=== PATIENT | female | born 1935 | race Caucasian/White ===

== ENCOUNTER 2016-09-26 14:49 | Emergency (ER) | payer MEDICARE, MEDICAID ==
[2016-09-26 15:02] VITALS: PULSE 76; RESP 18; TEMP 97.6; O2SAT 98
[2016-09-26 16:10] LABS: BASO # 0.1 K/uL (0.0-0.2); BASO % 0.8 % (0.0-2.0); EOS # 0.2 K/uL (0.0-0.7); EOS % 2.5 % (0.0-4.0); HEMATOCRIT 37.5 % (34.0-47.0); LYMPH # 2.7 K/uL (1.0-4.3); LYMPH % 27.1 % (20.0-40.0); MEAN CORPUSCULAR HGB CONC 34.4 g/dL (33.0-37.0); MEAN PLATELET VOLUME 10.2 fl (7.2-11.7); MONO # 1.4 K/uL (0.0-0.8); MONO % 13.8 % (0.0-10.0); NEUT # 5.5 K/uL (1.8-7.0); NEUT % 55.8 % (50.0-75.0); NRBC % 0.3 % (0.0-0.0); RED CELL DISTRIBUTION WIDTH 13.9 % (11.5-14.5); WHITE BLOOD COUNT 9.8 K/uL (4.8-10.8)
[2016-09-26 16:12] LABS: ALB/GLOB RATIO 1.5 (1.0-2.1); ALKALINE PHOSPHATASE 51 U/L (38-126); ALT/SGPT 32 U/L (9-52); AST/SGOT 58 U/L (14-36); BILIRUBIN,TOTAL 1.4 mg/dl (0.2-1.3); BLOOD UREA NITROGEN 10 mg/dl (7-17); CARBON DIOXIDE 25 mmol/L (22-30); CHLORIDE 99 mmol/L (98-107); GFR AFRICAN-AMERICAN > 60; GLUCOSE,RANDOM 146 mg/dL (65-105); MAGNESIUM 1.9 MG/DL (1.6-2.3); PHOSPHOROUS 2.9 mg/dl (2.5-4.5); POTASSIUM 4.6 MMOL/L (3.6-5.0); SODIUM 133 mmol/l (132-148); TOTAL PROTEIN 7.4 G/DL (6.3-8.2)
[2016-09-26 16:22] LABS: PARTIAL THROMBOPLASTIN TIME 21.6 SECONDS (23.3-32.5)
[2016-09-26 16:31] LABS: RBC URINE 21 /hpf (0-3); URINE BACTERIA MANY (<OCC); URINE BILIRUBIN NEGATIVE (NEGATIVE); URINE BLOOD LARGE (NEGATIVE); URINE COLOR YELLOW (YELLOW); URINE GLUCOSE (UA) NEG (Normal); URINE KETONE NEGATIVE (NEGATIVE); URINE LEUKOCYTE ESTERASE LARGE Leu/uL (Negative); URINE PROTEIN 100 mg/dL (NEGATIVE); URINE UROBILINOGEN 0.2-1.0 mg/dL (0.2-1.0); WBC CLUMPS MANY /hpf; WBC URINE 980 /hpf (0-5)
--- NOTE | 2016-09-26 16:50 | ED PDOC ---
HPI: Female Pain Time Seen by Provider: 09/26/16 15:10 Chief Complaint (Nursing): Female Genitourinary Chief Complaint (Provider): Female Genitourinary History Per: Patient History/Exam Limitations: no limitations Onset/Duration Of Symptoms: Days (x3) Current Symptoms Are (Timing): Still Present Associated Symptoms: Constipation (Chronic). denies: Fever, Chills, Nausea, Vomiting, Diarrhea Additional History Per: Patient Additional Complaint(s): Nathan Adair is a 80 year old female with a past medical history of HTN, and hypercholesterolemia who presents to the ED with a chief complaint of urinating pain onset x2 days [place]. Associated symptoms include lower abdominal discomfort, and frequent urination, but denies any hematuria, fever, chills, back pain, nausea, vomiting, or diarrhea. Patient also admits to having constipation chronically In addn, leg edema 1 week, no pain, no sob, no cp. Compliant with htn meds. Past Medical History Reviewed: Historical Data, Nursing Documentation, Vital Signs Vital Signs: Last Vital Signs Temp 97.6 F 09/26/16 14:59 Pulse 76 09/26/16 14:59 Resp 18 09/26/16 14:59 BP 169/78 H 09/26/16 14:59 Pulse Ox 98 09/26/16 14:59 - Medical History PMH: HTN, Hypercholesterolemia - Surgical History Surgical History: No Surg Hx - Family History Family History: States: Unknown Family Hx - Social History Current smoker - smoking cessation education provided: No Ex-Smoker (has not smoked in the last 12 months): No - Immunization History Hx Influenza Vaccination: Yes Hx Pneumococcal Vaccination: No - Home Medications Home Medications: Ambulatory Orders Medication Instructions Recorded Hydrochlorothiazide/Valsarta 1 tab PO DAILY 05/22/15 [Diovan Hct 12.5 mg-160 mg] Ibuprofen [Motrin Tab] 800 mg PO Q8H 05/22/15 Simvastatin 20 mg PO HS 05/22/15 oxyCODONE/Acetaminophen [Percocet 1 tab PO Q6H PRN #5 tab 05/22/15 5/325 mg Tab] Acyclovir 800 mg PO Q8 #21 tablet 12/07/15 Acyclovir 5% [Zovirax 5% Oint] 1 applic EXT 5XD #1 tube 12/07/15 Tramadol HCl [Ultram] 50 mg PO BID PRN #30 tablet 12/07/15 Ibuprofen [Motrin Tab] 600 mg PO Q6 #30 tab 01/19/16 Tamsulosin [Flomax] 0.4 mg PO DAILY #20 cap 01/19/16 levoFLOXacin [Levaquin] 750 mg PO DAILY 9 Days 01/19/16 traMADol [Ultram] 50 mg PO Q6 PRN #20 tab 01/19/16 Non-Formulary 1 ea .ROUTE DAILY #3 ea 09/26/16 levoFLOXacin [Levaquin] 750 mg PO DAILY #6 tab 09/26/16 - Allergies Allergies/Adverse Reactions: Allergies Allergy/AdvReac Type Severity Reaction Status Date / Time No Known Allergies Allergy Verified 09/26/16 14:58 Review of Systems ROS Statement: Except As Marked, All Systems Reviewed And Found Negative Constitutional: Negative for: Fever, Chills Gastrointestinal: Positive for: Constipation (Chronic), Other (Lower abdominal discomfort). Negative for: Nausea, Vomiting, Diarrhea Genitourinary Female: Positive for: Frequency. Negative for: Hematuria Musculoskeletal: Positive for: Other (Bilateral pedal edema). Negative for: Back Pain Physical Exam - Reviewed Nursing Documentation Reviewed: Yes Vital Signs Reviewed: Yes - Physical Exam Appears: Positive for: Well, Non-toxic, No Acute Distress Head Exam: Positive for: ATRAUMATIC, NORMAL INSPECTION, NORMOCEPHALIC Skin: Positive for: Normal Color, Warm, Dry Eye Exam: Positive for: Normal appearance, EOMI, PERRL ENT: Positive for: Normal ENT Inspection Neck: Positive for: Normal Cardiovascular/Chest: Positive for: Regular Rate, Rhythm. Negative for: Murmur , Tachycardia Respiratory: Positive for: Normal Breath Sounds. Negative for: Wheezing, Respiratory Distress Gastrointestinal/Abdominal: Positive for: Normal Exam, Soft. Negative for: Tenderness Back: Positive for: Normal Inspection. Negative for: L CVA Tenderness, R CVA Tenderness Extremity: Positive for: Pedal Edema (Bilateral) Lymphatic: Positive for: Deferred Neurologic/Psych: Positive for: Alert, Oriented - Laboratory Results Result Diagrams: 09/26/16 15:50 09/26/16 15:50 - ECG O2 Sat by Pulse Oximetry: 98 (RA) Pulse Ox Interpretation: Normal Medical Decision Making Medical Decision Makin: Initial Impression: UTI and Pedal Edema Initial Plan: * Partial Thromboplastin Time * B-Type Natriuretic Peptide * CMP * Magnesium * Phosphorous * Troponin I * ED U-Dip * CBC * Partial Thromboplastin Time * Prothrombin Time * Urine culture * IV insertion * Urinalysis * Re-Eval Used a video powdered metal supervisor # [id number] Labs demonstrate UTI, otherwise no clinically significant lab abnormalities DW pt via video translater Cristal Enriquez pcp next week. Scribe Attestation: Documented by Amanda Sequeira acting as a scribe for Berta Joy MD. Provider Scribe Attestation: All medical record entries made by the Scribe were at my direction and personally dictated by me. I have reviewed the chart and agree that the record accurately reflects my personal performance of the history, physical exam, medical decision making, and the department course for this patient. I have also personally directed, reviewed, and agree with the discharge instructions and disposition. Disposition - Clinical Impression Clinical Impression: Urinary tract infection, Leg edema - Disposition Referrals: [facility] [Outside] [facility] [Outside] - 09/28/16 Disposition: Routine/Home Disposition Time: 18:15 Condition: GOOD Prescriptions: levoFLOXacin [Levaquin] 750 mg PO DAILY #6 tab Non-Formulary 1 ea .ROUTE DAILY #3 ea Instructions: Urinary Tract Infection in Women (ED), Leg Edema (ED)
[2016-09-26] MEDS ORDERED: levoFLOXacin 750 MG TAB PO STA (17:44)
[2016-09-26 17:48] VITALS: BP 158/69
== END 2016-09-26 18:25 | disposition home or self-care (01) ==
LOC: H.ER 14:49
DX: N39.0 Urinary tract infection, site not specified (principal); R60.0 Localized edema; E78.00 Pure hypercholesterolemia, unspecified; I10 Essential (primary) hypertension; Z87.891 Personal history of nicotine dependence

== ENCOUNTER 2017-06-12 14:02 | Emergency (ER) | payer MEDICARE, MEDICAID ==
[2017-06-12 14:24] VITALS: BP 143/68; PULSE 69; RESP 20; TEMP 97.8; O2SAT 95
--- NOTE | 2017-06-12 15:13 | ED PDOC ---
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 Patient was evaluated with urologist about 3 months go with an ultrasound and cystoscopy. Patient was told she had no cancer but did have a urinary tract infection. Patient was prescribed antibiotics without relief and comes here today due to dysuria and frequency constantly everyday for 6 months. Denies fever, abdominal pain, flank pain, incontinence, hematuria, N/V/D. Past Medical History Reviewed: Historical Data, Nursing Documentation, Vital Signs Vital Signs: Last Vital Signs Temp 97.8 F 06/12/17 14:13 Pulse 69 06/12/17 14:13 Resp 20 06/12/17 14:13 BP 143/68 06/12/17 14:13 Pulse Ox 95 06/12/17 22:45 - Medical History PMH: HTN, Hypercholesterolemia - Family History Family History: States: No Known Family Hx - Immunization History Hx Influenza Vaccination: Yes Hx Pneumococcal Vaccination: No - Home Medications Home Medications: Ambulatory Orders Medication Instructions Recorded Hydrochlorothiazide/Valsarta 1 tab PO DAILY 05/22/15 [Diovan Hct 12.5 mg-160 mg] Ibuprofen [Motrin Tab] 800 mg PO Q8H 05/22/15 Simvastatin 20 mg PO HS 05/22/15 oxyCODONE/Acetaminophen [Percocet 1 tab PO Q6H PRN #5 tab 05/22/15 5/325 mg Tab] Acyclovir 800 mg PO Q8 #21 tablet 12/07/15 Acyclovir 5% [Zovirax 5% Oint] 1 applic EXT 5XD #1 tube 12/07/15 Tramadol HCl [Ultram] 50 mg PO BID PRN #30 tablet 12/07/15 Ibuprofen [Motrin Tab] 600 mg PO Q6 #30 tab 01/19/16 Tamsulosin [Flomax] 0.4 mg PO DAILY #20 cap 01/19/16 levoFLOXacin [Levaquin] 750 mg PO DAILY 9 Days tab 01/19/16 traMADol [Ultram] 50 mg PO Q6 PRN #20 tab 01/19/16 Non-Formulary 1 ea .ROUTE DAILY #3 ea 09/26/16 levoFLOXacin [Levaquin] 750 mg PO DAILY #6 tab 09/26/16 Nitrofurantoin Macrocrystals 100 mg PO BID #14 cap 06/12/17 [Macrobid] Phenazopyridine [Pyridium] 100 mg PO BID #6 tab 06/12/17 - Allergies Allergies/Adverse Reactions: Allergies Allergy/AdvReac Type Severity Reaction Status Date / Time No Known Allergies Allergy Verified 09/26/16 14:58 Review of Systems ROS Statement: Except As Marked, All Systems Reviewed And Found Negative Genitourinary Female: Positive for: Dysuria, Frequency Physical Exam - Reviewed Nursing Documentation Reviewed: Yes Vital Signs Reviewed: Yes - Physical Exam Appears: Positive for: Well, No Acute Distress Head Exam: Positive for: NORMAL INSPECTION Skin: Positive for: Normal Color, Warm, Dry Gastrointestinal/Abdominal: Positive for: Normal Exam, Soft. Negative for: Tenderness Back: Positive for: Normal Inspection. Negative for: L CVA Tenderness, R CVA Tenderness Neurologic/Psych: Positive for: Alert, Oriented (x3) - Laboratory Results Urine dip results: Positive for: Leukocyte Esterase (moderate), Blood (trace). Negative for: Nitrate, Ketones, Glucose, Bilirubin, Protein - ECG O2 Sat by Pulse Oximetry: 95 (RA) Pulse Ox Interpretation: Normal Medical Decision Making Medical Decision Making: Time: 1426 Initial impression: Urinary Tract Infection (UTI) Initial plan: --Urine DIP --Urine Culture --Reevaluation Time: 1453 --Patient is medically stable for discharge and given Rx for Macrobid 100 mg and Pyridium 100 mg. Patient advised to follow up with Dr. Carlitos Clement MD. Clinical Impression: Urinary Tract Infection (UTI) Scribe Attestation: Documented by Latha Solano, acting as a scribe for Kelvin Cano PA-C Provider Scribe Attestation: All medical record entries made by the Scribe were at my direction and personally dictated by me. I have reviewed the chart and agree that the record accurately reflects my personal performance of the history, physical exam, medical decision making, and the department course for this patient. I have also personally directed, reviewed, and agree with the discharge instructions and disposition. Disposition - Clinical Impression Clinical Impression: Urinary tract infection - Patient ED Disposition Is Patient to be Admitted: No - Disposition Referrals: Carlitos Clement MD [Medical Doctor] - Disposition: Routine/Home Disposition Time: 14:53 Condition: STABLE Prescriptions: Nitrofurantoin Macrocrystals [Macrobid] 100 mg PO BID #14 cap Phenazopyridine [Pyridium] 100 mg PO BID #6 tab Instructions: Urinary Tract Infection in Women (ED) Forms: [facility] (Yi) Print Language: FRENCH
== END 2017-06-12 17:15 | disposition home or self-care (01) ==
LOC: H.ER 14:02
DX: N39.0 Urinary tract infection, site not specified (principal); E78.00 Pure hypercholesterolemia, unspecified; I10 Essential (primary) hypertension

== ENCOUNTER 2017-06-13 12:32 | Emergency (ER) | payer MEDICARE, MEDICAID ==
[2017-06-13 12:55] VITALS: BP 154/48; PULSE 67; RESP 18; TEMP 97.6; O2SAT 98
--- NOTE | 2017-06-13 13:47 | ED PDOC ---
HPI: Female Pain Time Seen by Provider: 06/13/17 13:14 Chief Complaint (Nursing): Female Genitourinary Chief Complaint (Provider): Dysuria History Per: Patient History/Exam Limitations: no limitations Onset/Duration Of Symptoms: Days (1 week) Current Symptoms Are (Timing): Still Present Additional Complaint(s): Pt. with dysuria and freq urination. 1 week. Seen yesterday for it in ER. Given macrobid and pyridium. Here as she noted orange urine. Started the meds yesterday. Denies any abd pain, vaginal dc or bleeding. No back pain, weakness , chest pain, dyspnea, fever. Past Medical History Reviewed: Nursing Documentation, Vital Signs Vital Signs: Last Vital Signs Temp 97.6 F 06/13/17 12:53 Pulse 67 06/13/17 12:53 Resp 18 06/13/17 12:53 BP 154/48 H 06/13/17 12:53 Pulse Ox 98 06/13/17 12:53 - Medical History PMH: HTN, Hypercholesterolemia - Family History Family History: States: Unknown Family Hx - Social History Alcohol: None Drugs: Denies - Immunization History Hx Influenza Vaccination: Yes Hx Pneumococcal Vaccination: No - Home Medications Home Medications: Ambulatory Orders Medication Instructions Recorded Hydrochlorothiazide/Valsarta 1 tab PO DAILY 05/22/15 [Diovan Hct 12.5 mg-160 mg] Ibuprofen [Motrin Tab] 800 mg PO Q8H 05/22/15 Simvastatin 20 mg PO HS 05/22/15 oxyCODONE/Acetaminophen [Percocet 1 tab PO Q6H PRN #5 tab 05/22/15 5/325 mg Tab] Acyclovir 800 mg PO Q8 #21 tablet 12/07/15 Acyclovir 5% [Zovirax 5% Oint] 1 applic EXT 5XD #1 tube 12/07/15 Tramadol HCl [Ultram] 50 mg PO BID PRN #30 tablet 12/07/15 Ibuprofen [Motrin Tab] 600 mg PO Q6 #30 tab 01/19/16 Tamsulosin [Flomax] 0.4 mg PO DAILY #20 cap 01/19/16 levoFLOXacin [Levaquin] 750 mg PO DAILY 9 Days tab 01/19/16 traMADol [Ultram] 50 mg PO Q6 PRN #20 tab 01/19/16 Non-Formulary 1 ea .ROUTE DAILY #3 ea 09/26/16 levoFLOXacin [Levaquin] 750 mg PO DAILY #6 tab 09/26/16 Nitrofurantoin Macrocrystals 100 mg PO BID #14 cap 06/12/17 [Macrobid] Phenazopyridine [Pyridium] 100 mg PO BID #6 tab 06/12/17 - Allergies Allergies/Adverse Reactions: Allergies Allergy/AdvReac Type Severity Reaction Status Date / Time No Known Allergies Allergy Verified 06/13/17 13:21 Review of Systems Constitutional: Negative for: Fever, Weakness Cardiovascular: Negative for: Chest Pain, Edema, Light Headedness Respiratory: Negative for: Cough, Shortness of Breath Gastrointestinal: Negative for: Nausea, Vomiting, Abdominal Pain Genitourinary Female: Positive for: Dysuria, Frequency. Negative for: Hematuria Musculoskeletal: Negative for: Neck Pain, Shoulder Pain Skin: Negative for: Rash Neurological: Negative for: Weakness Physical Exam - Reviewed Nursing Documentation Reviewed: Yes Vital Signs Reviewed: Yes - Physical Exam Appears: Positive for: Non-toxic, No Acute Distress Head Exam: Positive for: ATRAUMATIC, NORMAL INSPECTION, NORMOCEPHALIC Neck: Positive for: Normal, Painless ROM Cardiovascular/Chest: Positive for: Regular Rate, Rhythm Respiratory: Positive for: CNT, Normal Breath Sounds Gastrointestinal/Abdominal: Positive for: Normal Exam, Bowel Sounds, Soft. Negative for: Tenderness Back: Positive for: Normal Inspection. Negative for: L CVA Tenderness, R CVA Tenderness Neurologic/Psych: Positive for: Alert, Oriented - ECG O2 Sat by Pulse Oximetry: 98 - Progress ED Course And Treament: 1348: Pt. advised that urine will turn orange with pyridium. Aware to continue antibiotics. Fu with clinic. Cx results pending final read. AAOx3. Pain controlled. Disposition - Clinical Impression Clinical Impression: Urinary tract infection - Patient ED Disposition Is Patient to be Admitted: No Counseled Patient/Family Regarding: Diagnosis, Need For Followup - Disposition Referrals: [facility] [Outside] - 06/14/17 Disposition: Routine/Home Disposition Time: 13:49 Condition: STABLE Additional Instructions: Return if not better in 3 days. Instructions: Urinary Tract Infection in Women (ED)
== END 2017-06-13 14:03 | disposition home or self-care (01) ==
LOC: H.ER 12:32
DX: N39.0 Urinary tract infection, site not specified (principal); I10 Essential (primary) hypertension; E78.00 Pure hypercholesterolemia, unspecified

== ENCOUNTER 2017-06-18 08:34 | Day surgery (SDC) | payer MEDICARE, MEDICAID ==
[2017-06-18] MEDS ORDERED: MethylPREDNISolone Depo 40 mg/ml Inj ONE (09:22)
[2017-06-18] MEDS ORDERED: Bupivacaine HCl 0.25% PF (10 ml) Inj ONE (09:23)
[2017-06-18] MEDS ORDERED: Lidocaine 1% Inj (20ml) ONE (09:23)
[2017-06-18] MEDS ORDERED: Iohexol 300 10 ML ONE (09:23)
[2017-06-18 09:45] VITALS: RESP 18
[2017-06-18] MEDS ORDERED: Lactated Ringer's 1,000 ML IV ONE (10:55)
[2017-06-18] MEDS ORDERED: Midazolam 2 MG/2 ML VIAL ONE (10:56)
[2017-06-18] MEDS ORDERED: Bupivacaine HCl 0.25% PF (10 ml) Inj IJ ONE (11:00)
[2017-06-18] MEDS ORDERED: Iohexol 300 10 ML IJ ONE (11:00)
[2017-06-18] MEDS ORDERED: methylPREDNISolone Depo 80 mg/ml Inj IM ONE (11:00)
[2017-06-18] MEDS ORDERED: Lidocaine 1% Inj (20ml) IJ ONE (11:00)
[2017-06-18] MEDS ORDERED: Lactated Ringer's 1,000 ML IV SCH (11:30)
[2017-06-18 13:10] VITALS: BP 144/52; PULSE 65; TEMP 97.3; O2SAT 97
--- NOTE | 2017-06-18 14:11 | RAD ---
PROCEDURE: Fluoroscopy up to 1 hr. HISTORY: PAIN MANAGEMENT COMPARISON: None TECHNIQUE: Standard protocol for this study/examination. FINDINGS: Total fluoroscopic time (continuous mode) utilized during the procedure: 45.2 seconds. Total exam DLP: (mGy): 16.61. IMPRESSION: Submitted images from the current procedure: 3.0.
--- NOTE | 2017-06-21 07:15 | OP ---
PROCEDURE DATE: 06/18/2017 PREOPERATIVE DIAGNOSES: Thoracic spondylosis and lumbar radiculopathy. POSTOPERATIVE DIAGNOSES: Thoracic spondylosis and lumbar radiculopathy. PROCEDURE: Right T4, T5, and T6 medial branch nerve block and right L4-5, L5-S1 transforaminal epidural steroid injection. SURGEON: Amy Dumont MD TYPE OF ANESTHESIA: Monitored anesthesia care. ANESTHESIA ADMINISTERED BY: Dr. Paez COMPLICATIONS: None. SPECIMEN: None. DESCRIPTION OF PROCEDURE: As follows; After discussion of the procedure with the patient including its risks, benefits, alternative, outcome data, possibility of no effect or increased pain, patient consented to the procedure. She denies any recent infections, bleeding tendencies or being on anticoagulants; the decision was then made to proceed to the OR. The patient was placed on the fluoroscopy table in a prone position with 2 pillows underneath her abdomen. The back was prepped and draped in the usual sterile fashion and sterile technique was adhered during the entire procedure. The L4 and L5 vertebral levels were first identified in the anterior and posterior view. Angulation towards the right at approximately 25 degrees was used to maximize the visualization of the right L4 and L5 pedicles. The skin overlying the 6 o'clock position of the pedicles was infiltrated with 1% lidocaine using a 25-gauge needle. Subsequently, a 22-gauge 3.5 inch spinal needle was incrementally advanced under fluoroscopic guidance until tip of the needle walk into the intervertebral foramen. After satisfactory positioning of both needles, approximately 0.5 mL of Isovue contrast was injected to show appropriate epidural nerve root spread without any signs of CSF or intravenous involvements. At this point, approximately 3 mL of 0.25% Marcaine and Depo-Medrol mixture was injected. The needle was then removed and the patient's back was cleaned and dry bandages were applied. Then the thoracic medial branch nerves were performed. The T4, T5, and T6 vertebral levels were first identified in the anteroposterior view. The medial branch nerves on the right is located at the right pedicle of the corresponding levels. The skin overlying the three above target areas were then infiltrated with 1% lidocaine using 25-gauge needle. Subsequently, a 22-gauge 3.5 inch spinal needle was then incrementally advanced under fluoroscopic guidance until the tip of needle made bony contact with all target areas. After satisfactory positioning of all 3 needles approximately 2 mL of 0.25% Marcaine and Depo-Medrol mixture was injected. The needle was then removed and the patient's chest was then cleaned and dried, and bandages were applied. 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 She will follow up in our office in approximately two to four weeks. En-Denys Dumont MD
== END 2017-06-18 13:40 | disposition home or self-care (01) ==
LOC: H.OPSURG 08:34
PROVIDERS: ATTEND Anesthesiology
DX: M54.16 Radiculopathy, lumbar region (principal); M47.894 Other spondylosis, thoracic region; I10 Essential (primary) hypertension
CPT/HCPCS: 64479; 64480; 64483; 64484; J1030; J1040; J2250; J3010; J7120; Q9967

== ENCOUNTER 2017-07-23 07:33 | Day surgery (SDC) | payer MEDICARE, MEDICAID ==
[2017-07-23 08:35] VITALS: BMI 27.2
[2017-07-23] MEDS ORDERED: MethylPREDNISolone Depo 40 mg/ml Inj ONE (09:13)
[2017-07-23] MEDS ORDERED: methylPREDNISolone Depo 80 mg/ml Inj ONE (09:13)
[2017-07-23] MEDS ORDERED: Iohexol 300 10 ML ONE (09:14)
[2017-07-23] MEDS ORDERED: Bupivacaine HCl 0.25% PF (10 ml) Inj ONE (09:14)
[2017-07-23] MEDS ORDERED: Lidocaine 1% Inj (20ml) ONE (09:14)
[2017-07-23] MEDS ORDERED: Bupivacaine HCl 0.5% PF (10 ml) Inj ONE (09:14)
[2017-07-23] MEDS ORDERED: Midazolam 2 MG/2 ML VIAL ONE (09:21)
[2017-07-23] MEDS ORDERED: Lactated Ringer's 500 ML IV ONE (09:40)
[2017-07-23] MEDS ORDERED: Lactated Ringer's 1,000 ML IV SCH (10:00)
--- NOTE | 2017-07-23 11:54 | OP ---
PROCEDURE DATE: 07/23/2017 PREOPERATIVE DIAGNOSES: Lumbar radiculopathy and right sacroiliac joint dysfunction and right greater trochanteric bursitis. POSTOPERATIVE DIAGNOSES: Lumbar radiculopathy and right sacroiliac joint dysfunction and right greater trochanteric bursitis. PROCEDURE: L5-S1 interlaminar epidural steroid injection and right sacroiliac joint steroid injection and right greater trochanteric injection. ANESTHESIOLOGIST: Tejinder Lawler MD SURGEON: Amy Dumont MD TYPE OF ANESTHESIA: Monitored anesthesia care. COMPLICATIONS: None. SPECIMEN: None. DESCRIPTION OF PROCEDURE: As follows. After, we had discussion of the procedure with the patient including its risks, benefits, alternative, outcome data, possibility of no effect or increased pain, the patient consented to the procedure. She denies any recent infection, bleeding tendencies, or being on anticoagulants, a decision was then made to proceed to the OR. The patient was placed on the fluoroscopy table in a prone position with 2 pillows underneath her abdomen. The back was prepped and draped in the usual sterile fashion and sterile technique was adhered during the entire procedure. The L5-S1 interlaminar space was first identified in the anterior and posterior view. The skin overlying this area was then infiltrated with 1% lidocaine using a 25-gauge needle. Subsequently, a 20-gauge 3.5-inch Tuohy needle was then incrementally advanced under fluoroscopic guidance until loss of resistance was reached at approximately 6 cm depth. This was confirmed by injecting approximately 1 mL of Isovue contrast, which showed appropriate epidural spread both the anterior, posterior view and lateral views without any signs of CSF or intravenous involvement. At this point, approximately 5 mL of normal saline and Depo-Medrol mixture was gradually injected. The needle was then removed. joints was visualized on the anterior and posterior view. The skin overlying the inferior pole of the posterior opening of the joint was then infiltrated with 1% lidocaine using 25-gauge needle. Subsequently, a 22-gauge 3.5-inch spinal needle was then incrementally advanced under fluoroscopic guidance until the tip of the needle worked into the joint capsule. This was confirmed by injecting approximately 0.5 mL Isovue contrast. After appropriate placement of the needle, approximately 3 mL of 0.5% Marcaine and Depo-Medrol mixture was injected. The needle was then removed. Then the right greater trochanter was palpated. The skin overlying this area was infiltrated with 1% lidocaine using 25-gauge needle. Then, a 22-gauge 3.5-inch spinal needle was then incrementally advanced under fluoroscopic guidance until tip of needle made bony contact. This was confirmed the anterior, posterior view fluoroscopy. The tip of the needle was placed at the greater trochanteric bursa. Contrast was injected to rule out inadvertant placement of the needle. Then, approximately 5 mL of 0.5% Marcaine and Depo-Medrol mixture was injected. The needle was then removed and the patient's back was cleaned and dried and bandages were applied. The patient was then transferred to recovery area in good condition without any signs of GRIEF COUNSELLOR toxicity or any neurological deficits. She will have a follow in office in approximately 2 to 4 weeks. En-Denys Dumont MD
[2017-07-23 12:37] VITALS: BP 148/57; PULSE 76; RESP 18; TEMP 97.5; O2SAT 96
--- NOTE | 2017-07-23 13:30 | RAD ---
PROCEDURE: Intraoperative fluoroscopy CT HISTORY: PAIN MANAGEMENT COMPARISON: Not available TECHNIQUE: Intraoperative fluoroscopy was provided for multifocal fluoroscopically guided pain management injections. Total time of fluoroscopy was 31.0 seconds. FINDINGS: Multiple fluoroscopic spot films are submitted. IMPRESSION: Fluoroscopy provided.
== END 2017-07-23 12:30 | disposition home or self-care (01) ==
LOC: H.OPSURG 07:33
PROVIDERS: ATTEND Anesthesiology
DX: M54.16 Radiculopathy, lumbar region (principal); I10 Essential (primary) hypertension; M70.61 Trochanteric bursitis, right hip; E78.5 Hyperlipidemia, unspecified
CPT/HCPCS: 20610; 62323; J1030; J1040; J2250; J3010; J7120; Q9967

== ENCOUNTER 2017-09-23 07:37 | Day surgery (SDC) | payer MEDICARE, MEDICAID | END 2017-09-23 09:30 | disposition home or self-care (01) | LOC: H.ENDO 07:37 | PROVIDERS: ATTEND Internal Medicine Gastroenterology | DX: Z02.89 Encounter for other administrative examinations (principal) ==

== ENCOUNTER 2017-10-22 13:43 | Emergency (ER) | payer MEDICARE, MEDICAID ==
[2017-10-22 13:44] VITALS: BMI 27.2
--- NOTE | 2017-10-22 14:20 | ED PDOC ---
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 states for the past 4-5 days she's had dysuria, frequency, and urgency. She was initially treated with Detrol by a "specialist" without any relief. Denies back pain, fever, hematuria, abdominal pain, N/V/D. Past Medical History Reviewed: Historical Data, Nursing Documentation, Vital Signs Vital Signs: Last Vital Signs Temp 98.4 F 10/22/17 13:51 Pulse 73 10/22/17 13:51 Resp 18 10/22/17 13:51 BP 188/75 H 10/22/17 13:51 Pulse Ox 97 10/22/17 13:51 - Medical History PMH: HTN, Hypercholesterolemia - Family History Family History: States: No Known Family Hx - Immunization History Hx Influenza Vaccination: Yes Hx Pneumococcal Vaccination: No - Home Medications Home Medications: Ambulatory Orders Medication Instructions Recorded Atorvastatin [Lipitor] 20 mg PO DAILY 06/18/17 Gabapentin [Neurontin] 100 mg PO DAILY 06/18/17 Valsartan [Diovan] 160 mg PO DAILY 06/18/17 Ciprofloxacin [Cipro] 500 mg PO BID #14 tab 10/22/17 Phenazopyridine HCl [Pyridium] 100 mg PO BID #6 tablet 10/22/17 - Allergies Allergies/Adverse Reactions: Allergies Allergy/AdvReac Type Severity Reaction Status Date / Time No Known Allergies Allergy Verified 06/13/17 13:21 Review of Systems ROS Statement: Except As Marked, All Systems Reviewed And Found Negative Genitourinary Female: Positive for: Dysuria, Frequency Physical Exam - Physical Exam Appears: Positive for: Well, Non-toxic, No Acute Distress Skin: Positive for: Normal Color, Warm. Negative for: Rash Eye Exam: Positive for: Normal appearance Gastrointestinal/Abdominal: Positive for: Normal Exam, Soft. Negative for: Tenderness Back: Positive for: Normal Inspection. Negative for: L CVA Tenderness, R CVA Tenderness Neurologic/Psych: Positive for: Alert, Oriented. Negative for: Aphasia, Facial Droop - Laboratory Results Urine dip results: Positive for: Leukocyte Esterase (moderate), Blood (trace), Nitrate (positive). Negative for: Ketones, Glucose, Bilirubin, Protein - ECG O2 Sat by Pulse Oximetry: 97 - Progress ED Course And Treament: Urine culture sent. Previous Urine C&S indicate pt. has a hx of Klebsiella UTI's which are sensitive to cipro. Pt. advised to return to ED immediatley if symptoms worsen or if fever develops. Also informed of pyridium side effects. All this was done using [employer] spanish medical interpreter. Disposition - Clinical Impression Clinical Impression: Urinary tract infection - Patient ED Disposition Is Patient to be Admitted: No - Disposition Referrals: [facility] [Outside] Disposition: Routine/Home Disposition Time: 14:26 Condition: STABLE Additional Instructions: Follow up with PMD for further evaluation. Return to ED immediately if symptoms worsen. Prescriptions: Ciprofloxacin [Cipro] 500 mg PO BID #14 tab Phenazopyridine HCl [Pyridium] 100 mg PO BID #6 tablet Instructions: Urinary Tract Infection, Adult (DC) Forms: [employer] (Romanian) Print Language: IRISH
[2017-10-22 15:16] VITALS: BP 126/79; PULSE 81; RESP 14; TEMP 98.2; O2SAT 98
== END 2017-10-22 15:14 | disposition home or self-care (01) ==
LOC: H.ER 13:43
DX: N39.0 Urinary tract infection, site not specified (principal); I10 Essential (primary) hypertension

== ENCOUNTER 2017-11-23 07:51 | Day surgery (SDC) | payer MEDICARE, MEDICAID ==
[2017-11-23] MEDS ORDERED: Lactated Ringer's 500 ML IV ONE (08:18)
[2017-11-23] MEDS ORDERED: Propofol 10 mg/ml Inj (20 ML) ONE (08:36)
--- NOTE | 2017-11-23 08:42 | CP.SDSHP ---
Same Day Surgery H & P - History Proposed Procedure: EGD Pre-Op Diagnosis: chronic GERD - Previous Medical/Surgical History Cardiac: Hypertension - Allergies Allergies: Allergies No Known Allergies Allergy (Verified 06/13/17 13:21) - Current Medications Current Medications: see MAR - Physical Exam General Appearance: no acute distress Vital Signs: Vital Signs 11/23/17 08:30 Temperature 97.4 F L Pulse Rate 75 Respiratory 17 Rate Blood Pressure 187/60 H O2 Sat by Pulse 97 Oximetry Mental Status: Alert & Oriented x3 Neuro: WNL Heart: WNL Lungs: WNL GI: WNL - {Optional Preform as Required} Abdomen: WNL - Impression Impression: chronic GERD Pt. Evaluated Today:Candidate for Anesthesia & Procedure: Yes - Date & Time Date: 11/23/17 Time: 08:40 Short Stay Discharge - Short Stay Discharge Admitting Diagnosis/Reason for Visit: K21.9 Disposition: HOME/ ROUTINE Referrals: Radha Chavira MD [Primary Care Provider] -
[2017-11-23 10:42] VITALS: RESP 14; TEMP 97
[2017-11-23 10:44] VITALS: BP 143/57; PULSE 54; O2SAT 100
== END 2017-11-23 11:15 | disposition home or self-care (01) ==
LOC: H.ENDO 07:51
PROVIDERS: ATTEND Internal Medicine Gastroenterology
DX: K21.9 Gastro-esophageal reflux disease without esophagitis (principal); M54.5 Low back pain; E78.5 Hyperlipidemia, unspecified; I10 Essential (primary) hypertension; K29.50 Unspecified chronic gastritis without bleeding; K44.9 Diaphragmatic hernia without obstruction or gangrene; K29.70 Gastritis, unspecified, without bleeding; R10.13 Epigastric pain; R14.0 Abdominal distension (gaseous)
CPT/HCPCS: 43239; 88305; J2001; J2704; J7120

== ENCOUNTER 2018-02-03 18:32 | Emergency (ER) | payer MEDICARE, MEDICAID ==
[2018-02-03 18:32] VITALS: BMI 27.2
[2018-02-03 18:52] VITALS: TEMP 98.4; O2SAT 97
[2018-02-03] MEDS ORDERED: Labetalol 5mg/ml (4ml) IVP ONE (20:00)
[2018-02-03 20:15] LABS: ALB/GLOB RATIO 1.4 (1.0-2.1); ALBUMIN 4.2 g/dL (3.5-5.0); ALT/SGPT 44 U/L (9-52); AST/SGOT 44 U/L (14-36); BLOOD UREA NITROGEN 8 mg/dl (7-17); CALCIUM 9.6 mg/dL (8.4-10.2); GFR NON-AFRICAN AMERICAN > 60
[2018-02-03 20:23] LABS: INR 0.9; PROTHROMBIN TIME 10.1 Seconds (9.8-13.1)
[2018-02-03 20:26] LABS: B-TYPE NATRIURETIC PEPTIDE 182 pg/ml (0-900); PARTIAL THROMBOPLASTIN TIME 31.8 Seconds (25.6-37.1)
[2018-02-03 20:36] VITALS: PULSE 69
--- NOTE | 2018-02-03 21:10 | ED PDOC ---
HPI: Influenza Time Seen by Provider: 02/03/18 18:56 Chief Complaint: Cough, Cold, Congestion Past Medical History Vital Signs: Last Vital Signs Temp 98.4 F 02/03/18 18:44 Pulse 69 02/03/18 20:35 Resp 16 02/03/18 18:44 BP 183/93 H 02/03/18 20:35 Pulse Ox 97 02/03/18 18:44 - Medical History PMH: HTN, Hypercholesterolemia Denies: Chronic Kidney Disease - Surgical History Surgical History: Appendectomy - Family History Family History: States: Unknown Family Hx - Immunization History Hx Influenza Vaccination: Yes Hx Pneumococcal Vaccination: No - Home Medications Home Medications: Ambulatory Orders Medication Instructions Recorded Famotidine [Pepcid] 20 mg PO DAILY 11/23/17 Valsartan/Hydrochlorothiazide 1 tab PO DAILY 11/23/17 [Valsartan and Hydrochlorothiazide 12.5 mg-160] - Allergies Allergies/Adverse Reactions: Allergies Allergy/AdvReac Type Severity Reaction Status Date / Time No Known Allergies Allergy Verified 06/13/17 13:21 - Laboratory Results Result Diagrams: 02/03/18 19:30 02/03/18 19:30 - ECG O2 Sat by Pulse Oximetry: 97 Disposition - Disposition
--- NOTE | 2018-02-03 21:21 | ED PDOC ---
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 Denies edema, orthopnea, weakness or headache. Taking lisinopril/HCTZ combo for BP and notes BP to be very elevated today 198/94 at home (she is showing home monitor log). Past Medical History Vital Signs: Last Vital Signs Temp 98.4 F 02/03/18 18:44 Pulse 69 02/03/18 20:35 Resp 16 02/03/18 18:44 BP 183/93 H 02/03/18 20:35 Pulse Ox 97 02/03/18 18:44 - Medical History PMH: HTN, Hypercholesterolemia Denies: Chronic Kidney Disease - Surgical History Surgical History: Appendectomy - Family History Family History: States: Unknown Family Hx - Immunization History Hx Influenza Vaccination: Yes Hx Pneumococcal Vaccination: No - Home Medications Home Medications: Ambulatory Orders Medication Instructions Recorded Famotidine [Pepcid] 20 mg PO DAILY 11/23/17 Valsartan/Hydrochlorothiazide 1 tab PO DAILY 11/23/17 [Valsartan and Hydrochlorothiazide 12.5 mg-160] Losartan/Hydrochlorothiazide 1 each PO DAILY #15 tablet 02/03/18 [Losartan-Hctz 50-12.5 mg Tab] - Allergies Allergies/Adverse Reactions: Allergies Allergy/AdvReac Type Severity Reaction Status Date / Time No Known Allergies Allergy Verified 06/13/17 13:21 - Laboratory Results Result Diagrams: 02/03/18 21:38 02/03/18 19:30 - ECG O2 Sat by Pulse Oximetry: 97 Medical Decision Making Medical Decision Making: Time: 22:10 --Patient's blood work was reviewed, results are unremarkable --CXR reviewed by me, shows no acute infiltrate --Discussed case with Dr. Flanagan from clinic who reviewed ECW discovering that the several visits for cough likely coincided with initation with lisinopril. Will change back to Losartan --Blood pressure here has been improving after Labetolol. Patient wants to go home all results reccomended and explained to patient in Mandarin via voice capacity planning engineer [id number]. --Noted postive QFT and clinic to follow up with Disposition - Clinical Impression Clinical Impression: Cough, Hypertension - Disposition Referrals: [facility] [place] [Outside] Condition: STABLE Additional Instructions: STOP YOUR LISINOPRIL BLOOD PRESSURE MEDICATION THIS MAY BE CAUSING YOUR COUGH. START LOSARTAN 50MG DAILY. SEE CLINIC NEXT WEEK FOR BLOOD PRESSURE CHECK. RETURN TO ER FOR ANY DIFFICULTY BREATHING, FEVER, WORSENING SYMPTOMS OR ANY CONCERN. Prescriptions: Losartan/Hydrochlorothiazide [Losartan-Hctz 50-12.5 mg Tab] 1 each PO DAILY #15 tablet Instructions: Cough in Adults Forms: [facility] (Bahamian)
[2018-02-03 21:39] LABS: EOS % 2.5 % (0.0-4.0); HEMOGLOBIN 13.1 g/dL (12.0-16.0); LYMPH % 40.6 % (20.0-40.0); MEAN CELL VOLUME 91.3 fl (81.0-99.0); MEAN CORPUSCULAR HEMOGLOBIN 31.3 pg (27.0-31.0); MEAN CORPUSCULAR HGB CONC 34.2 g/dL (33.0-37.0); MEAN PLATELET VOLUME 9.9 fl (7.2-11.7); MONO % 15.9 % (0.0-10.0); NEUT % 40.3 % (50.0-75.0); RBC 4.18 Mil/uL (3.80-5.20); RED CELL DISTRIBUTION WIDTH 13.8 % (11.5-14.5); WHITE BLOOD COUNT 6.9 K/uL (4.8-10.8)
[2018-02-03 21:40] LABS: BASO % 0.7 % (0.0-2.0); EOS # 0.2 K/uL (0.0-0.7); LYMPH # 2.8 K/uL (1.0-4.3); MONO # 1.1 K/uL (0.0-0.8); NEUT # 2.8 K/uL (1.8-7.0); NRBC % 0.2 % (0.0-0.0)
[2018-02-03 21:53] VITALS: BP 157/82; RESP 20
--- NOTE | 2018-02-04 08:40 | CARD ---
APPROVED REPORT Date of service: 02/03/2018 EKG Measurement Heart [id number] <Conclusion> Normal sinus rhythm Nonspecific ST and T wave abnormality Abnormal ECG
--- NOTE | 2018-02-04 11:12 | RAD ---
Date of service: 02/03/2018 HISTORY: chest pain/ r/o infiltrate COMPARISON: Chest radiograph dated 01/26/2018 TECHNIQUE: Chest PA and lateral FINDINGS: LUNGS: No active pulmonary disease. PLEURA: No significant pleural effusion identified. No pneumothorax apparent. CARDIOVASCULAR: Atherosclerotic aortic calcifications. Cardiomediastinal silhouette stably enlarged. OSSEOUS STRUCTURES: Unchanged. VISUALIZED UPPER ABDOMEN: Normal. OTHER FINDINGS: None. IMPRESSION: No active disease.
== END 2018-02-03 22:14 | disposition home or self-care (01) ==
LOC: H.ER 18:32
DX: R05 Cough (principal); I10 Essential (primary) hypertension; E78.00 Pure hypercholesterolemia, unspecified